=== PATIENT | male | born 1990 | race Caucasian/White ===

== ENCOUNTER 2018-10-19 18:44 | Emergency (ER) | payer OTHER ==
[~2018-10-19] VITALS: Ht 180.3 cm; Wt 86.2 kg
[2018-10-19] MEDS ORDERED: IBUPROFEN 600600 M1 PO (20:41)
[2018-10-19 22:50] VITALS: BP 118/53
== END 2018-10-19 22:52 | disposition home or self-care (01) ==
LOC: ER 18:44
DX: S82.831A Other fracture of upper and lower end of right fibula, initial encounter for closed fracture (principal); F41.9 Anxiety disorder, unspecified; V49.50XA Passenger injured in collision with unspecified motor vehicles in traffic accident, initial encounter; Y93.89 Activity, other specified; Y92.89 Other specified places as the place of occurrence of the external cause; Y99.8 Other external cause status